=== PATIENT | female | born 1990 | race Caucasian/White ===

== ENCOUNTER 2023-07-03 10:35 | Outpatient (CLI) | payer OTHER, SELFPAY ==
[2023-07-03 12:07] LABS: Beta HCG Quantitative 20.04 mIU/ML
[2023-07-07 21:43] LABS: Progesterone 0.5 ng/mL (***)
== END 2023-07-03 10:36 | disposition home or self-care (01) ==
LOC: ANHLAB 10:43
PROVIDERS: Visit Provider Obstetrics & Gynecology
DX: O20.0 Threatened abortion (principal); Z3A.00 Weeks of gestation of pregnancy not specified
CPT/HCPCS: 36415; 84144; 84702